=== PATIENT | female | born 1945 ===

== ENCOUNTER 2017-04-09 16:00 | Outpatient (RCR) | payer OTHER | END 2017-04-11 | disposition home or self-care (01) | LOC: PTY 16:00 | DX: M51.36 Other intervertebral disc degeneration, lumbar region (principal); M48.07 Spinal stenosis, lumbosacral region; E11.9 Type 2 diabetes mellitus without complications; I10 Essential (primary) hypertension; Z88.6 Allergy status to analgesic agent ==

== ENCOUNTER 2017-04-19 13:00 | Outpatient (RCR) | payer OTHER | END 2017-05-12 | disposition home or self-care (01) | LOC: PTY 13:00 | DX: M51.36 Other intervertebral disc degeneration, lumbar region (principal); M48.07 Spinal stenosis, lumbosacral region; E11.9 Type 2 diabetes mellitus without complications; Z79.84 Long term (current) use of oral hypoglycemic drugs; I10 Essential (primary) hypertension ==